=== PATIENT | female | born 1990 | race Caucasian/White ===

== ENCOUNTER 2018-08-10 16:09 | Emergency (ER) | payer BC, SELFPAY ==
--- OUTSIDE RECORDS SUMMARY | 2018-08-10 16:13 | XMS REPORT | Clinical Summary ---
:1990 Author Organization [facility] Address [address] [place] [id number] Care Team Providers Name Role Phone Asked, No Pcp Primary Care Provider Unavailable Allergies Active Allergy Reactions Severity Noted Date Comments Codeine GI Intolerance 09/24/2011 Medications Medication Sig Dispensed Refills Start Date End Date Status ELIQUIS 5 mg tablet TAKE ONE (1) 3 04/11/2018 Active TABLET(S) BY MOUTH TWICE A DAY. diazePAM (VALIUM) 5 MG Take 1 tablet 15 tablet 0 05/05/2018 05/10/2018 tablet (5 mg total) by mouth every 8 (eight) hours as needed for anxiety or muscle spasms for up to 5 days. acetaminophen (TYLENOL Take 1 tablet 30 tablet 0 05/05/2018 06/04/2018 EXTRA STRENGTH) 500 MG (500 mg total) tablet by mouth every 6 (six) hours as needed for mild pain for up to 30 days. Active Problems No known active problems Encounters Date Type Specialty Care Team Description 06/17/2018 Office Visit Orthopedic Surgery Dustin Sal Closed fracture of [place] left tibial plateau, initial encounter (Primary Dx) 06/04/2018 Office Visit Orthopedic Surgery Dustin Sal Closed fracture of [place] left tibial plateau, initial encounter (Primary Dx) 05/29/2018 Telephone Orthopedic Surgery Sangeetha Betts MA 05/26/2018 Telephone Orthopedic Surgery Sangeetha Betts MA 05/22/2018 Orders Only Orthopedic Surgery Sangeetha Betts MA 05/07/2018 Office Visit Orthopedic Surgery Dustin Sal Closed fracture of [place] left tibial plateau, initial encounter (Primary Dx) 05/06/2018 Hospital Encounter Radiology Dustin Sal Acute internal [place] derangement of left knee 05/06/2018 Office Visit Orthopedic Surgery HemanthDustin garcia Acute internal [place] derangement of left knee (Primary Dx) 05/05/2018 Emergency Emergency Medicine Jogre Delacruz Sprain of left knee, unspecified ligament, initial encounter (Primary Dx); A., DO Sprain of other site of left little finger, initial encounter; Fall, initial encounter after 08/09/2017 Family History Medical History Relation Name Comments Diabetes Mother Relation Name Status Comments Father Alive Mother Alive Social History Tobacco Use Types Packs/Day Years Used Date Never Smoker Smokeless Tobacco: Never Used Alcohol Use Drinks/Week oz/Week Comments Yes socially' Sex Assigned at Date Recorded Not on file Job Start Date Occupation Industry Not on file Not on file Not on file Travel History Travel Start Travel End No recent travel history available. Last Filed Vital Signs Vital Sign Reading Time Taken Blood Pressure 119/75 05/05/2018 7:44 PM CDT Pulse 78 05/05/2018 7:44 PM CDT Temperature 37.1 C (98.7 F) 05/05/2018 7:44 PM CDT Respiratory Rate 18 05/05/2018 7:44 PM CDT Oxygen Saturation 99% 05/05/2018 7:44 PM CDT Inhaled Oxygen Concentration - - Weight 104 kg (230 lb) 06/17/2018 2:13 PM CDT Height 180.3 cm (5' 11") 06/17/2018 2:13 PM CDT Body Mass Index 32.08 06/17/2018 2:13 PM CDT Plan of Treatment Health Maintenance Due Date Last Done Comments INFLUENZA VACCINE 09/24/2018 Procedures Procedure Name Priority Date/Time Associated Diagnosis Comments XR KNEE 4+ VW LEFT Routine 06/04/2018 3:00 PM Closed fracture of Results for this CDT left tibial plateau, procedure are in initial encounter the results section. MRI KNEE WO STAT 05/06/2018 7:39 PM Acute internal Results for this CONTRAST LEFT CDT derangement of left procedure are in knee the results section. XR CERVICAL SPINE 2 STAT 05/05/2018 7:22 PM Results for this OR 3 VW CDT procedure are in the results section. XR ANKLE 3+ VW LEFT STAT 05/05/2018 7:22 PM Results for this CDT procedure are in the results section. XR KNEE 3 VW LEFT STAT 05/05/2018 7:21 PM Results for this CDT procedure are in the results section. XR FINGER 2+ VW STAT 05/05/2018 7:21 PM Results for this LEFT CDT procedure are in the results section. after 08/09/2017 Results XR Knee 4+ Vw Left (06/04/2018 3:00 PM CDT) Specimen Narrative Performed At 4 view weightbearing radiographs left knee do not reveal any fracture. [facility] Alignment is maintained. Performing Organization Address City/State/Zipcode Phone Number [facility] [address] [place] [address] MRI Knee Left Wo Contrast (05/06/2018 7:39 PM CDT) Specimen Narrative Performed At EXAMINATION:MRI KNEE WO CONTRAST LEFT [facility] CLINICAL HISTORY:M23.92 Unspecified internal derangement of left knee, left knee pain TECHNIQUE:Multiplanar multisequence MR imaging of theleft knee was performed without contrast. COMPARISON:None. FINDINGS: Cruciate ligaments: Intact. Menisci: Intact. Collateral ligaments: Intact. Bone marrow: There is a fracture of the posterolateral margin of the lateral tibial plateau, without cortical depression. There is moderate surrounding bone marrow edema. There is associated subtle fracture/fissuring through the posterior lateral articular cartilage (series 6 image 10, series 5 image 20). Articular cartilage: Focal chondral fissure associated with posterior lateral tibial plateau fracture discussed above. Effusion: Large joint effusion. Extensor mechanism: Normal patellofemoral alignment. Soft tissues: Mild posterior pericapsular edema, edema and between the popliteus and gastrocnemius muscles, possibly due to a ruptured Garcia's cyst. IMPRESSION: Acute nondisplaced fracture of the posterior lateral margin of the lateral tibial plateau. [id number] Procedure Note Interface, Radiology Results Incoming - 05/06/2018 7:53 PM CDT EXAMINATION: MRI KNEE WO CONTRAST LEFT CLINICAL HISTORY: M23.92 Unspecified internal derangement of left knee, left knee pain TECHNIQUE: Multiplanar multisequence MR imaging of the left knee was performed without contrast. COMPARISON: None. FINDINGS: Cruciate ligaments: Intact. Menisci: Intact. Collateral ligaments: Intact. Bone marrow: There is a fracture of the posterolateral margin of the lateral tibial plateau, without cortical depression. There is moderate surrounding bone marrow edema. There is associated subtle fracture/fissuring through the posterior lateral articular cartilage (series 6 image 10, series 5 image 20). Articular cartilage: Focal chondral fissure associated with posterior lateral tibial plateau fracture discussed above. Effusion: Large joint effusion. Extensor mechanism: Normal patellofemoral alignment. Soft tissues: Mild posterior pericapsular edema, edema and between the popliteus and gastrocnemius muscles, possibly due to a ruptured Garcia's cyst. IMPRESSION: Acute nondisplaced fracture of the posterior lateral margin of the lateral tibial plateau. [id number] Performing Organization Address [facility] Phone Number [facility] [address] [place] [address] XR Cervical Spine 2 Or 3 Vw (05/05/2018 7:22 PM CDT) Specimen Narrative Performed At EXAMINATION: XR CERVICAL SPINE 2 OR 3 VW [facility] CLINICAL HISTORY: Neck paininitial exam COMPARISON:None IMPRESSION: No displaced fracture. No subluxation. Straightening of normal cervical lordosis. No significant disc height loss. Prevertebral soft tissue thickness is within normal limits. [id number] Procedure Note Interface, Radiology Results Incoming - 05/05/2018 7:27 PM CDT EXAMINATION: XR CERVICAL SPINE 2 OR 3 VW CLINICAL HISTORY: Neck pain initial exam COMPARISON: None IMPRESSION: No displaced fracture. No subluxation. Straightening of normal cervical lordosis. No significant disc height loss. Prevertebral soft tissue thickness is within normal limits. [id number] Performing Organization Address [facility]/[employer] Phone Number [facility] [address] [place] [address] XR Ankle 3+ Vw Left (05/05/2018 7:22 PM CDT) Specimen Narrative Performed At EXAMINATION:XR ANKLE 3VW LEFT [facility] CLINICAL HISTORY:Fractureankle COMPARISON:None. IMPRESSION: There is no evidence of acute left ankle fracture or dislocation. [id number] Procedure Note Interface, Radiology Results Incoming - 05/05/2018 7:27 PM CDT EXAMINATION: XR ANKLE 3 VW LEFT CLINICAL HISTORY: Fracture ankle COMPARISON: None. IMPRESSION: There is no evidence of acute left ankle fracture or dislocation. [id number] Performing Organization Address [facility]/Zipcode Phone Number [facility] [address] [place] [address] XR Knee 3 Vw Left (05/05/2018 7:21 PM CDT) Specimen Narrative Performed At EXAMINATION:XR KNEE 3 VW LEFT [facility] CLINICAL HISTORY:Knee paininitial exam COMPARISON:None available at this time. IMPRESSION: 1. No fracture, malalignment, or osseous destructive lesion of the left knee. 2. Joint spaces are maintained. No significant degenerative changes. 3. No joint effusion. Soft tissues are unremarkable. [id number] Procedure Note Interface, Radiology Results Incoming - 05/05/2018 7:27 PM CDT EXAMINATION: XR KNEE 3 VW LEFT CLINICAL HISTORY: Knee pain initial exam COMPARISON: None available at this time. IMPRESSION: 1. No fracture, malalignment, or osseous destructive lesion of the left knee. 2. Joint spaces are maintained. No significant degenerative changes. 3. No joint effusion. Soft tissues are unremarkable. [id number] Performing Organization Address [facility] Phone Number [employer] [address] [place] [address] XR Finger 2+ Vw Left (05/05/2018 7:21 PM CDT) Specimen Narrative Performed At EXAMINATION:XR FINGER 2VW LEFT [facility] CLINICAL HISTORY:Fracturehand COMPARISON:None. IMPRESSION: There is no evidence of acute left finger fracture or dislocation. [id number] Procedure Note Interface, Radiology Results Incoming - 05/05/2018 7:27 PM CDT EXAMINATION: XR FINGER 2 VW LEFT CLINICAL HISTORY: Fracture hand COMPARISON: None. IMPRESSION: There is no evidence of acute left finger fracture or dislocation. [id number] Performing Organization Address City/[facility] Phone Number [employer] [address] [place] [address] after 08/09/2017 Insurance Payer Benefit Plan / Subscriber ID Effective Dates Phone Address Type Group ALLIED HEALTH ALLIED HEALTH xxxxxxxxx 2017-Present Commercial INS Advance Directives Patient has advance care planning documents on file. For more information, please contact:Lowell Carter[address] [place] [phone]
[2018-08-10] MEDS ORDERED: KETOROLAC 30 MG/ML INJ ONE (17:23)
--- NOTE | 2018-08-10 17:27 | RAD REPORT ---
EXAM DESCRIPTION: RAD - Chest Single View - 08/10/2018 5:12 pm CLINICAL HISTORY: CHEST PAIN Chest pain. COMPARISON: <Comparisons> FINDINGS: Portable technique limits examination quality. The lungs are grossly clear. The heart is normal in size. No displaced fractures. IMPRESSION: No acute intrathoracic process suspected.
[2018-08-10 17:29] LABS: Absolute Lymphocytes (CBC) 2.3 K/uL (0.7-4.9); Basophils % 0.5 % (0-1.3); Eosinophils % 2.4 % (0-4.4); Hematocrit 42.7 % (36.0-45.0); Lymphocytes % 22.7 % (15.3-44.8); MPV 10.3 fL (7.6-11.3); Monocytes % 6.2 % (3.3-12.3); RBC Red Blood Cell Count 4.61 M/uL (3.86-4.86)
[2018-08-10 17:30] LABS: Protime INR 0.92
[2018-08-10 17:33] LABS: Urine Blood NEGATIVE (NEG); Urine Glucose NEGATIVE (NEG); Urine Protein NEGATIVE (NEG)
[2018-08-10 17:41] LABS: ALT/SGPT 30 U/L (12-78); AST/SGOT 18 U/L (15-37); Albumin 3.8 g/dL (3.4-5.0); Alkaline Phosphatase 78 U/L (45-117); BUN Blood Urea Nitrogen 14 mg/dL (7-18); Bicarbonate 30 mmol/L (21-32); Bilirubin Direct 0.1 mg/dL (0-0.2); Bilirubin Total 0.5 mg/dL (0.2-1.0); Glucose Level 92 mg/dL (74-106); Magnesium 2.1 mg/dL (1.8-2.4); NT PRO-BNP 24 pg/mL (<125); Potassium 3.4 mmol/L (3.5-5.1); Protein, Total 7.6 g/dL (6.4-8.2); Sodium Level 139 mmol/L (136-145); Troponin (Emerg Dept Use Only) < 0.02 ng/mL (0.0-0.045)
--- NOTE | 2018-08-10 18:32 | EDPHYS ---
Physician Documentation [facility] Name: Cydney Cortés Age: 28 yrs Sex: Female : 1990 Arrival Date: 08/10/2018 Time: 16:13 Bed 14 Private MD: ED Physician Michel Lai HPI: 08/10 17:05 This 28 yrs old Female presents to ER via Ambulatory with complaints of Chest cp Pain. 17:05 The patient or guardian reports chest pain that is located primarily in the substernal cp area. 17:05 The pain does not radiate. Associated signs and symptoms: Pertinent positives: cp shortness of breath, Pertinent negatives: abdominal pain, cough, diaphoresis, dizziness, lower extremity pain, lower extremity swelling, palpitations, recent travel, syncope, vomiting. The chest pain is described as sharp. Duration: The patient or guardian reports a single episode, that is still ongoing. Modifying factors: the symptoms are aggravated by activity, palpation of area. Patient reports history of multiple pulmonary embolisms diagnosed in January 2017 while on oral contraceptive. Patient reports she stopped taking prescribed Eliquis in April 2018 due to cost and lack of insurance. Patient c/o chest pain and SOB since yesterday. 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 - Social history:: Smoking status: Patient/guardian denies using tobacco. - Ebola Screening: : Patient denies travel to an Ebola-affected area in the 21 days before illness onset. ROS: 17:10 Constitutional: Negative for body aches, chills, fever, poor PO intake. cp 17:10 Eyes: Negative for injury, pain, redness, and discharge. cp 17:10 ENT: Negative for drainage from ear(s), ear pain, sore throat, difficulty swallowing, difficulty handling secretions. 17:10 Cardiovascular: Positive for chest pain, Negative for edema, palpitations. 17:10 Respiratory: Positive for shortness of breath, Negative for cough, wheezing. 17:10 Abdomen/GI: Negative for abdominal pain, nausea, vomiting, and diarrhea, black/tarry stool, rectal bleeding. 17:10 Skin: Negative for cellulitis, rash. 17:10 Neuro: Negative for altered mental status, dizziness, headache, weakness. 17:10 All other systems are negative. Exam: 16:33 ECG was reviewed by the Attending Physician. cp 17:15 Constitutional: The patient appears in no acute distress, alert, awake, cp non-diaphoretic, non-toxic, well developed, well nourished. 17:15 Head/Face: Normocephalic, atraumatic. Eyes: Pupils equal round and reactive to light, cp extra-ocular motions intact. Lids and lashes normal. Conjunctiva and sclera are non-icteric and not injected. Cornea within normal limits. Periorbital areas with no swelling, redness, or edema. ENT: Nares patent. No nasal discharge, no septal abnormalities noted. Tympanic membranes are normal and external auditory canals are clear. Oropharynx with no redness, swelling, or masses, exudates, or evidence of obstruction, uvula midline. Mucous membranes moist. 17:15 Chest/axilla: Inspection: normal, Palpation: crepitus, is not appreciated, tenderness, that is mild, of the mid-sternal area, that partially reproduces the patient's complaints. 17:15 Cardiovascular: Rate: normal, Rhythm: regular, Pulses: Pulses are 2+ in right radial artery and left radial artery. Edema: is not appreciated, JVD: is not appreciated. 17:15 Respiratory: the patient does not display signs of respiratory distress, Respirations: normal, no use of accessory muscles, no retractions, no splinting, no tachypnea, labored breathing, is not present, Breath sounds: are clear throughout, no decreased breath sounds, no stridor, no wheezing. 17:15 Abdomen/GI: Inspection: abdomen appears normal, Palpation: abdomen is soft and non-tender, in all quadrants, rebound tenderness, is not appreciated, voluntary guarding, is not appreciated, involuntary guarding, is not appreciated. 17:15 Back: pain, is absent, ROM is normal. 17:15 Skin: no rash present. 17:15 Neuro: Orientation: to person, place \T\ time. Mentation: is normal, Cerebellar function: is grossly normal, Motor: moves all fours, strength is normal, Sensation: is normal. Vital Signs: 16:37 BP 112 / 82; Pulse 85; Resp 15; Temp 98.2(TE); Pulse Ox 100% on R/A; Weight 108.86 kg aj1 (R); Height 5 ft. 11 in. (180.34 cm) (R); Pain 8/10; 17:30 BP 113 / 77; Pulse 83; Resp 19; Pulse Ox 100% on R/A; aj1 18:31 BP 109 / 74; Pulse 52; Resp 18; Pulse Ox 100% on R/A; aj1 16:37 Body Mass Index 33.47 (108.86 kg, 180.34 cm) aj1 MDM: 16:26 Patient medically screened. cp 16:30 Differential diagnosis: acute pericarditis, chest wall pain, cholecystitis, cp Cholelithiasis costochondritis, esophagitis, gastritis, myocarditis, pancreatitis, pericarditis, pneumonia, pneumothorax, pulmonary embolus. 18:30 Data reviewed: vital signs, nurses notes, lab test result(s), EKG, radiologic studies, cp plain films, I have discussed the patient's presentation/case with the attending Emergency Department Physician; and as a result, I will discharge patient. 18:30 Test interpretation: by ED physician or midlevel provider: ECG, plain radiologic cp studies. Counseling: I had a detailed discussion with the patient and/or guardian regarding: the historical points, exam findings, and any diagnostic results supporting the discharge/admit diagnosis, lab results, radiology results, to return to the emergency department if symptoms worsen or persist or if there are any questions or concerns that arise at home. Response to treatment: the patient's symptoms have mildly improved after treatment, and as a result, I will discharge patient. Special discussion: Based on the patient's history, exam, and Dx evaluation, there is no indication for emergent intervention or inpatient Tx. It is understood by the patient/guardian that if the Sx's persist or worsen they need to return immediately for re-evaluation. 08/10 16:27 Order name: Basic Metabolic Panel; Complete Time: 18:15 cp 08/10 18:24 Interpretation: Normal except: K 3.4; GFR 78. cp 06/17 16:27 Order name: CBC with Diff; Complete Time: 18:15 cp /17 16:27 Order name: LFT's; Complete Time: 18:15 cp /17 18:25 Interpretation: Normal except: GLOB 3.8; A/G 1.0. cp 06/17 16:27 Order name: Magnesium; Complete Time: 18:15 cp /17 16:27 Order name: NT PRO-BNP; Complete Time: 18:15 cp /17 16:27 Order name: PT-INR; Complete Time: 18:15 cp /17 16:27 Order name: Troponin (emerg Dept Use Only); Complete Time: 18:15 cp /17 16:27 Order name: XRAY Chest (1 view); Complete Time: 18:15 cp /17 16:27 Order name: EKG; Complete Time: 16:28 cp /17 16:27 Order name: Cardiac monitoring; Complete Time: 16:40 cp /17 16:42 Order name: D-Dimer; Complete Time: 18:15 cp /17 17:21 Order name: Urine Dipstick--Ancillary (enter results); Complete Time: 18:15 bd /17 17:21 Order name: Urine --Ancillary (enter results); Complete Time: 18:15 bd /17 16:27 Order name: EKG - Nurse/Tech; Complete Time: 16:40 cp /17 16:27 Order name: IV Saline Lock; Complete Time: 16:41 cp /17 16:27 Order name: Labs collected and sent; Complete Time: 16:41 cp /17 16:27 Order name: O2 Per Protocol; Complete Time: 16:41 cp /17 16:27 Order name: O2 Sat Monitoring; Complete Time: 16:41 cp /17 16:27 Order name: Urine Dipstick-Ancillary (obtain specimen); Complete Time: 17:24 cp / 16:27 Order name: Urine Test (obtain specimen); Complete Time: 17:24 cp EC:33 Rate is 78 beats/min. Rhythm is regular. ND interval is normal. QRS interval is normal. cp QT interval is normal. T waves are Inverted in lead aVR. Interpreted by me. Reviewed by me. Administered Medications: 17:22 Drug: TORadol 30 mg Route: IVP; Site: right antecubital; aj1 18:11 Follow up: Response: No adverse reaction aj1 Disposition: 08/10/18 18:31 Discharged to Home. Impression: Other chest pain. - Condition is Stable. - Discharge Instructions: Nonspecific Chest Pain. - Prescriptions for Ibuprofen 800 mg Oral Tablet - take 1 tablet by ORAL route every 8 hours As needed take with food; 30 tablet. Albuterol Sulfate 90 mcg/actuation - inhale 1-2 puff by INHALATION route every 4-6 hours; 1 Inhaler. - Medication Reconciliation Form, Thank You Letter, Antibiotic Education, Prescription Opioid Use form. - Follow up: Private Physician; When: 2 - 3 days; Reason: Recheck today's complaints. - Problem is new. - Symptoms have improved. Signatures: Dispatcher [employer] Olena Mcelroy RN RN aj1 Troy Hutchison PA PA cp Corrections: (The following items were deleted from the chart) 18:44 18:31 08/10/2018 18:31 Discharged to Home. Impression: Other chest pain. Condition is aj1 Stable. Forms are Medication Reconciliation Form, Thank You Letter, Antibiotic Education, Prescription Opioid Use. Follow up: Private Physician; When: 2 - 3 days; Reason: Recheck today's complaints. Problem is new. Symptoms have improved. cp
--- NOTE | 2018-08-10 18:32 | ER ---
Nurse's Notes [facility] Name: Cydney Cortés Age: 28 yrs Sex: Female : 1990 Arrival Date: 08/10/2018 Time: 16:13 Bed 14 Private MD: Diagnosis: Other chest pain Presentation: 08/10 16:17 Presenting complaint: Patient states: She stopped taking her Elliquis in April because aj1 she does not have insurance and it got too expensive. Patient has a history of PE, states that she started having chest pain yesterday and today she started feeling short of breath. Transition of care: patient was not received from another setting of care. Onset of symptoms was August 09, 2018. Risk Assessment: Do you want to hurt yourself or someone else? Patient reports no desire to harm self or others. 16:17 Method Of Arrival: Ambulatory aj1 16:17 Acuity: LAMAR 3 aj1 16:35 Initial Sepsis Screen: Does the patient meet any 2 criteria? No. Patient's initial aj1 sepsis screen is negative. Does the patient have a suspected source of infection? No. Patient's initial sepsis screen is negative. Care prior to arrival: None. Triage Assessment: 16:37 General: Appears in no apparent distress. uncomfortable, Behavior is calm, cooperative, aj1 appropriate for age. Pain: Complains of pain in mid-sternal area. Cardiovascular: Reports chest pain. 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 - Social history:: Smoking status: Patient/guardian denies using tobacco. - Ebola Screening: : Patient denies travel to an Ebola-affected area in the 21 days before illness onset. Screenin:38 Abuse screen: Denies threats or abuse. Denies injuries from another. Nutritional aj1 screening: No deficits noted. Tuberculosis screening: No symptoms or risk factors identified. 18:44 Fall Risk None identified. aj1 Assessment: 16:38 General: Appears in no apparent distress. uncomfortable, Behavior is calm, cooperative, aj1 appropriate for age. Pain: Complains of pain in mid-sternal area Pain does not radiate. Pain currently is 8 out of 10 on a pain scale. Quality of pain is described as sharp, Pain began 1 day ago. Is intermittent, Aggravated by repositioning. Neuro: Level of Consciousness is awake, alert, obeys commands, Oriented to person, place, time, situation. Cardiovascular: Patient's skin is warm and dry. Rhythm is sinus rhythm. Respiratory: Airway is patent Respiratory effort is even, unlabored, Respiratory pattern is regular, symmetrical. GI: No signs and/or symptoms were reported involving the gastrointestinal system. : No signs and/or symptoms were reported regarding the genitourinary system. EENT: No signs and/or symptoms were reported regarding the EENT system. Derm: No signs and/or symptoms reported regarding the dermatologic system. Skin is pink, warm \T\ dry. normal. Musculoskeletal: No signs and/or symptoms reported regarding the musculoskeletal system. Circulation, motion, and sensation intact. 17:29 Reassessment: Patient appears in no apparent distress at this time. No changes from aj1 previously documented assessment. Patient and/or family updated on plan of care and expected duration. Pain level reassessed. Patient is alert, oriented x 3, equal unlabored respirations, skin warm/dry/pink. 18:31 Reassessment: Patient appears in no apparent distress at this time. No changes from aj1 previously documented assessment. Patient and/or family updated on plan of care and expected duration. Pain level reassessed. Patient is alert, oriented x 3, equal unlabored respirations, skin warm/dry/pink. Vital Signs: 16:37 BP 112 / 82; Pulse 85; Resp 15; Temp 98.2(TE); Pulse Ox 100% on R/A; Weight 108.86 kg aj1 (R); Height 5 ft. 11 in. (180.34 cm) (R); Pain 8/10; 17:30 BP 113 / 77; Pulse 83; Resp 19; Pulse Ox 100% on R/A; aj1 18:31 BP 109 / 74; Pulse 52; Resp 18; Pulse Ox 100% on R/A; aj1 16:37 Body Mass Index 33.47 (108.86 kg, 180.34 cm) aj1 ED Course: 16:13 Patient arrived in ED. mr 16:17 Olena Dhaliwal, RN is Primary Nurse. aj1 16:18 Triage completed. aj1 16:19 Troy Hutchison PA is PHCP. cp 16:19 Michel Lai MD is Attending Physician. cp 16:30 EKG done, by client technical specialist. reviewed by Michel Lai MD. 3 16:30 Initial lab(s) drawn, by wy, sent to lab. Inserted saline lock: 20 gauge in right aj1 antecubital area, using aseptic technique. Blood collected. 16:37 Arm band placed on. aj1 16:38 No provider procedures requiring assistance completed. Patient maintains SpO2 aj1 saturation greater than 95% on room air. 16:38 Patient has correct armband on for positive identification. Bed in low position. Call aj1 light in reach. Side rails up X 1. manager monitoring on. Pulse ox on. NIBP on. 17:14 XRAY Chest (1 view) In Process Unspecified. EDMS 18:43 IV discontinued, intact, bleeding controlled, No redness/swelling at site. Pressure aj1 dressing applied. Administered Medications: 17:22 Drug: TORadol 30 mg Route: IVP; Site: right antecubital; aj1 18:11 Follow up: Response: No adverse reaction aj1 Outcome: 18:31 Discharge ordered by . cp 18:44 Discharged to home ambulatory. aj1 18:44 Condition: good 18:44 Discharge instructions given to patient, Instructed on discharge instructions, follow up and referral plans. medication usage, Demonstrated understanding of instructions, follow-up care, medications, Prescriptions given X 2. 18:44 Patient left the ED. aj1 Signatures: Dispatcher [employer] EDME Olena Dhaliwal RN RN aj1 Kalina Nagy mr Troy Hutchison PA PA cp Meliza Nath 3
--- NOTE | 2018-08-10 22:21 | EKG ---
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
== END 2018-08-10 18:44 | disposition home or self-care (01) ==
LOC: ER 16:09
DX: R07.89 Other chest pain (principal); R06.02 Shortness of breath; Z88.5 Allergy status to narcotic agent; Z91.018 Allergy to other foods; Z79.01 Long term (current) use of anticoagulants; Z86.711 Personal history of pulmonary embolism
CPT/HCPCS: 36415; 71045; 80048; 80076; 81003; 81025; 83735; 83880; 84484; 85025; 85379; 85610; 93005; 96374; 99285

== ENCOUNTER 2021-11-05 22:49 | Emergency (ER) | payer BC, OTHER ==
--- OUTSIDE RECORDS SUMMARY | 2021-11-05 22:52 | XMS REPORT | Continuity of Care Document ---
:1990 Author Organization [facility] t Address [address] [place] [address] Care Team Providers Name Role Phone PCP, PATIENT DOES NOT HAVE A Primary Care Physician Unavaila ble Daniel_T Attending Clinician Unavailable Only, Ang Db Test Attending Clinician Unavailable Tara Kim Attending Clinician TARA BRASHER Attending Clinician Unavailable Montez Brady MD Attending Clinician JHONNY HINOJOSA Attending Clinician Unavailable Alverto_Carlos Admitting Clinician Unavailable Payers Payer Name Policy Type Policy Number Effective Date Expiration Date 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 diane polycythem Polycythem 0-24 Fa sudha ia ia 00:00: Practic 00 e Obstructiv Obstructiv Problem Active 2020-02 [place] e sleep e Sleep 0-21 Family apnea Apnea 00:00: Practic syndrome Syndrome 00 e Prediabete Prediabete Problem Active 2020-02 V illage s s 0-21 Family 00:00: Practic 00 e Obesity Obesity Problem Active 2020-02 [place] 0-21 Family 00:00: Practic 00 e LGSIL (low LGSIL (low Disease Active Overview : 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 Repeat cytology in 1 year Rh Rh Disease Active Overview: Univer s negative negative 05-02 Formattin ity of state in state in 00:00: g of this Jun[place] as antepartum antepartum 00 note Me dical period period might be Branch different from the original. Rhogam at 28 weeks Supervisio Supervisio Disease Active U nivers n of n of 3-08 ity of high[place]risk [place] [facility] [place] No known No known Disease Metho di active active st problems problems Hospit a l Allergies, Adverse Reactions, Alerts Allergy Allergy Status Severity Reaction(s) Onset Inactive Treating Comm ents Source Name Type Date Date Clinician STRAWBER DRUG Active Anaphylaxis Uni vers RY INGREDI 04-30 ity of 00:00: [place] 00 [facility] Strawber Propensi Active Anaphylaxis U nivers ry ty to 04-30 ity of adverse 00:00: [place] reaction 00 Medical s Branch Codeine Propensi Active GI Methodi ty to Intolerance 09-23 st adverse 00:00: Hospita reaction 00 l s to drug CODEINE DRUG Active N/V Univers INGREDI 09-23 ity of 00:00: [place] 00 [facility] Codeine Propensi Active Nausea Univers ty to and/or 09-23 ity of adverse Vomiting 00:00: [place] reaction 00 Medical s Branch STRAWBER Allergy Active Fatal Anaphylaxis 2009-02 Vi llage RY to 0-10 Family substanc 00:00: Practic e 00 e CAT Allergy Active Moderate, Eye [place] DANDER to Moderate swelling, Famil y substanc Facial Practic e swelling e Codeine Allergy Active Severe Vomiting Villag e to Family substanc Practic e e Dog Allergy Active Mild to Wheezing Villag e Dander to moderate Family substanc Practic e e STOCK Allergy Active Moderate, Cough, Villag e RAGWEED to Moderate Facial Family POLLEN substanc swelling Practi c MIXTURE e e Family History Family Member Diagnosis Comments Start Date Stop Date Source Natural father [facility] Natural mother Diabetes [facility] Social History Social Habit Start Date Stop Date Quantity Comments Source Alcohol intake 2018-06-17 2018-06-17 Current drinker [facility] 00:00:00 00:00:00 of alcohol (finding) Alcohol Comment 2018-05-05 2018-05-05 socially' [facility] 00:00:00 00:00:00 Tobacco use and 2015-05-01 2015-05-01 Never used Universit y of exposure 00:00:00 00:00:00 [facility] Sex Ass[birth year] At [birth year] [facility] 00:00:00 00:00:00 Smoking Status Start Date Stop Date Source Never smoked tobacco [facility] ospital Medications Ordered Filled Start Stop Current Ordering Indication Dosage Frequency Signature Comments Components Source Medication Medication Date Date Medication? Clinician (SIG) Name Name RAMOS 5 Yes TAKE ONE Meth antonella mg tablet 2-16 (1) st 00:00: TABLET(S) Hospita 00 BY MOUTH l TWICE A DAY. PNV without Yes [id number] 1{each} Take 1 Univers Ca-Iron 3-08 Each by ity of [id number]-FA 00:00: mouth [place] (SELECT-OB, 00 daily. Medica l FOLIC Branch ACID,) 29-1 mg Chew acyclovir acyclovir No acyclovir [facility] 200 mg 200 mg 200 mg Family capsule capsule capsule Practi c TAKE ONE TAKE ONE TAKE ONE e (1) (1) (1) CAPSULE(S) CAPSULE(S) CAPSULE(S) BY MOUTH BY MOUTH BY MOUTH FIVE TIMES FIVE TIMES FIVE TIMES A DAY FOR A DAY FOR A DAY FOR 10 DAYS. 10 DAYS. 10 DAYS. bupropion bupropion No bupropion [facility] HCl XL 300 HCl XL 300 HCl XL 300 Family mg 24 hr mg 24 hr mg 24 hr Pra ctic tablet, tablet, tablet, e extended extended extended release release release TAKE ONE TAKE ONE TAKE ONE (1) (1) (1) TABLET(S) TABLET(S) TABLET(S) BY MOUTH BY MOUTH BY MOUTH EVERY EVERY EVERY MORNING. MORNING. MORNING. cetirizine cetirizine No cetirizine [facility] 10 mg 10 mg 10 mg Family tablet TAKE tablet TAKE tablet Practic ONE (1) ONE (1) TAKE ONE e TABLET(S) TABLET(S) (1) BY MOUTH BY MOUTH TABLET(S) ONCE A DAY. ONCE A DAY. BY MOUTH ONCE A DAY. phentermine phentermine No phentermin [facility] 37.5 mg 37.5 mg e 37.5 mg Fami ly tablet TAKE tablet TAKE tablet Practic ONE (1) ONE (1) TAKE ONE e TABLET(S) TABLET(S) (1) BY MOUTH BY MOUTH TABLET(S) ONCE A DAY. ONCE A DAY. BY MOUTH ONCE A DAY. Trulicity Trulicity No Trulicity [place] 1.5 mg/0.5 1.5 mg/0.5 1.5 mg/0.5 Family mL mL mL Practic subcutaneou subcutaneou subcutaneo e s pen s pen us pen injector injector injector INJECT 1.5 INJECT 1.5 INJECT 1.5 MG MG MG SUBCUTANEOU SUBCUTANEOU SUBCUTANEO SLY EVERY SLY EVERY USLY EVERY WEEK. WEEK. WEEK. Trulicity 3 Trulicity 3 No 3mg Q1W Trulicity [place] mg/0.5 mL mg/0.5 mL 3 mg/0.5 F amily subcutaneou subcutaneou mL P ractic s pen s pen subcutaneo e injector injector us pen Inject 3 mg Inject 3 mg injector every week every week Inject 3 by by mg every subcutaneou subcutaneou week by s route for s route for subcutaneo 30 days. 30 days. us route for 30 days. Immunizations Ordered Filled Immunization Date Status Comments [facility] e Immunization Name Name SARS-COV-2 COVID-19 2020-11-03 Completed Unive rsity of PFIZER VACCINE 00:00:00 [facility] SARS-COV-2 COVID-19 2020-10-10 Completed Unive rsity of PFIZER VACCINE 00:00:00 [facility] HPV 2008-11-29 Completed University 00:00:00 [facility] HPV 2008-03-25 Completed University 00:00:00 [facility] HPV 2007-12-02 Completed [facility] 00:00:00 [facility] Vital Signs Vital Name Observation Time Observation Value Comments Source BP Diastolic 2021-06-14 00:00:00 71 mm[Hg] [facility] Height 2021-06-14 00:00:00 70 [in_i] [facility] BMI (Body Mass 2021-06-14 00:00:00 34.1 kg/m2 [facility] BP Systolic 2021-06-14 00:00:00 107 mm[Hg] [facility] Body Weight 2021-06-14 00:00:00 238 [lb_av] [facility] BP Diastolic 2021-03-16 00:00:00 73 mm[Hg] [facility] Height 2021-03-16 00:00:00 70 [in_i] [facility] BMI (Body Mass 2021-03-16 00:00:00 35.3 kg/m2 Vill e Family Index) Practice BP Systolic 2021-03-16 00:00:00 106 mm[Hg] [facility] Body Weight 2021-03-16 00:00:00 246 [lb_av] [facility] Practice BP Diastolic 2020-12-14 00:00:00 79 mm[Hg] [facility] Height 2020-12-14 00:00:00 70 [in_i] [facility] Practice BMI (Body Mass 2020-12-14 00:00:00 37 kg/m2 [facility] e Family Index) Practice BP Systolic 2020-12-14 00:00:00 112 mm[Hg] [facility] Body Weight 2020-12-14 00:00:00 258 [lb_av] [facility] Procedures Procedure Date / Time Performed Performing Clinician [facility] e Caesarean Section 2015-10-13 00:00:00 [facility] sudha Practice Foot Surgery [facility] mony Plan of Care Planned Activity Planned Date Details Comments Source Future Scheduled Test 2021-10-25 HEPATITIS B VACCINES [facility] 21:29:40 (1 of 3 - 3-dose series) [code = HEPATITIS B VACCINES (1 of 3 - 3-dose series)] Future Scheduled Test 2021-10-25 COVID-19 VACCINE [facility] 21:29:40 (#1) [code = COVID-19 VACCINE (#1)] Future Scheduled Test 2021-10-25 Screening for [facility] 21:29:40 malignant neoplasm of cervix (procedure) [code = [id number]] Future Scheduled Test 2021-10-[address] [facility] 21:29:40 [code = INFLUENZA VACCINE] Diagnostic Test 2021-06-14 glucose, [facility] Fami ly Pending 00:00:00 fingerstick, blood Practice [code = glucose, fingerstick, blood] Diagnostic Test 2021-06-14 hemoglobin A1C, [facility] Naomi deysi Pending 00:00:00 fingerstick [code = Practice hemoglobin A1C, fingerstick] Future Appointment 2021-12-14 Victor Manuel [facility] 00:00:00 [id number]; [facility] [address], [place] [address] Future Appointment 2021-12-06 Victor Manuel [facility] 16:00:00 [id number]; [address], [place] [address] Encounters Start End Encounter Admission Attending Care Care Encounter Source Date/Time Date/Time Type Type Clinicians Facility Department ID 2021-07-05 2021-07-05 Outpatient Daniel_T VFP VFP [id number] [facility] 07:21:00 07:21:00 [id number] Family Sharma e 2021-06-14 2021-06-14 James Del Toro_T VFP [place] - [id number] [facility] 00:00:00 00:00:00 [facility] [id number] Selwyn Del Toro MD: [id number] UYEN_Harshal zarco [address] [place] [address] [address] , Ph. 2021-06-07 2021-06-07 Outpatient Daniel_T VFP VFP [id number] [id number] [facility] 05:28:00 05:28:00 [id number] Family Sharma e 2021-03-20 2021-03-20 Outpatient Daniel_T VFP VFP [id number] [id number] [facility] 03:22:00 03:22:00 [id number] Family Zachary e 2021-03-16 2021-03-16 James Ismaelel_T VFP [place] - [id number] 0 [facility] 00:00:00 00:00:00 [facility] [id number] Selwyn Del Toro MD: [id number] Marissa zarco [address] [place] [address], [place] [address] , Ph. 2021-02-24 2021-02-24 Laboratory Only, Ang Db Test [facility] 1.2.8 40.114 [id number] [facility] 11:30:00 11:45:00 Only [facility] [id number] [facility] [id number] Junito as CHEYANNE?BLEA [phone] Ks mitzy [address] MEDICAL OFFICE BUILDING 2021-02-24 2021-02-24 Outpatient Tabitha BRASHER [facility] [id number] Univers 11:30:00 11:30:00 [facility] 2021-01-25 2021-01-25 Outpatient Daniel_T VFP VFP [id number] [place] 08:04:00 08:04:00 [id number] Family Practic e 2020-12-28 2020-12-28 Outpatient Daniel_T VFP VFP [id number] 20 [place] 03:28:00 03:28:00 [id number] Family Practic e 2020-12-14 2020-12-14 James Daniel_T VFP [place] - [id number] [facility] 00:00:00 00:00:00 [facility] [id number] Selwyn Escobar - Prackeily burgess MD: [id number] VM_FEMI_Raul e [place] [facility], [address], [place] [address] , Ph. 2020-11-22 2020-11-22 Outpatient Daniel_T VFP VFP [id number] [facility] 05:19:00 05:19:00 [id number] Family Practic e 2020-11-16 2020-11-16 Telephone Jose Antonio, [id number] Methodi 00:00:00 00:00:[id number] [id number] Hospit [id number] l .8 2020-10-10 2020-10-10 Outpatient Tabitha HINOJOSA [facility] [id number] Univers 17:40:00 18:00:08 JHONNY [facility] 2018-08-11 2018-08-11 Emergency E [facility]BL [facility] [id number] [facility] 14:04:00 14:04:00 Results Test Description Test Time Test Comments Results Result Comments Source Hemoglobin A1c measurement device panel 2021-06-14 16:01:01 Test Item Value Reference Range Interpretation Comme nts Hemoglobin A1C Fingerstick: (test code = Hemoglobin A1C Fingerstick :) 4.7 [facility] Capillary [id number] 15:58:23 Test Item Value Reference Range Interpretation Comments Blood Glucose: mg/dl (test code = Blood 87 Glucose: mg/dl) [facility] [id number] 15:59:25 Test Item Value Reference Range Interpretation Comments Hemoglobin A1C Fingerstick: (test code 4.7 = Hemoglobin A1C Fingerstick:) [facility]] in Capillary [id number] 15:53:38 Test Item Value Reference Range Interpretation Comments Blood Glucose: mg/dl (test code = Blood 68 Glucose: mg/dl) [facility] [id number] 16:04:41 Test Item Value Reference Range Interpretation Comments Hemoglobin A1C Fingerstick: (test code 4.6 = Hemoglobin A1C Fingerstick:) [facility]
[2021-11-06] MEDS ORDERED: NA CHLORIDE 0.9% 1,000 ML ONE (00:02)
[2021-11-06 00:07] LABS: Hematocrit 40.1 % (36.0-45.0); Lymphocytes % 13.4 % (15.3-44.8); MCV 89.6 fL (80-100); MPV 9.4 fL (7.6-11.3); RBC Red Blood Cell Count 4.48 M/uL (3.86-4.86)
[2021-11-06 00:21] LABS: Albumin 3.5 g/dL (3.4-5.0); Bilirubin Total 0.5 mg/dL (0.2-1.0); Protein, Total 7.6 g/dL (6.4-8.2)
--- NOTE | 2021-11-06 01:27 | ER ---
Nurse's Notes [facility] Name: Cydney Cortés Age: 31 yrs Sex: Female : 1990 Arrival Date: 11/05/2021 Time: 22:50 Bed 4 Private MD: Diagnosis: Infectious gastroenteritis and colitis, unspecified Presentation: 11/05 23:04 Chief complaint: Patient states: I have a stabbing pain in my RUQ, I feel like I have aa9 to use the bathroom but I can't. I was throwing up yesterday and I have had a severe headache these past 2 days. I have noticed mild fever too. Coronavirus screen: Vaccine status: Patient reports receiving the 2nd dose of the covid vaccine. Ebola Screen: No symptoms or risks identified at this time. Initial Sepsis Screen: Does the patient meet any 2 criteria? No. Patient's initial sepsis screen is negative. Does the patient have a suspected source of infection? No. Patient's initial sepsis screen is negative. Risk Assessment: Do you want to hurt yourself or someone else? Patient reports no desire to harm self or others. Onset of symptoms was November 05, 2021. 23:04 Method Of Arrival: Ambulatory aa9 23:04 Acuity: LAMAR 3 aa9 Triage Assessment: 23:08 General: Appears uncomfortable, Behavior is cooperative, anxious. Pain: Complains of aa9 pain in right upper quadrant Pain currently is 8 out of 10 on a pain scale. Quality of pain is described as stabbing. GI: Abdomen is distended. 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 - Social history:: Smoking status: Patient denies any tobacco usage or history of. Screenin:09 Abuse screen: Denies threats or abuse. Denies injuries from another. Nutritional aa9 screening: No deficits noted. Tuberculosis screening: No symptoms or risk factors identified. Fall Risk None identified. Assessment: 23:15 Reassessment: See triage note. 11/06 00:39 Reassessment: Patient appears in no apparent distress at this time. Patient and/or jb4 family updated on plan of care and expected duration. Pain level reassessed. Patient is alert, oriented x 3, equal unlabored respirations, skin warm/dry/pink. Vital Signs: 11/05 23:04 BP 108 / 97; Pulse 102; Resp 17 S; Temp 98.9(O); Pulse Ox 100% on R/A; Weight 104.33 kg aa9 (R); Height 5 ft. 10 in. (177.80 cm) (R); Pain 8/10; 11/06 00:25 BP 108 / 69; Pulse 93; Resp 18; Pulse Ox 100% on R/A; jj7 01:44 BP 103 / 66; Pulse 91; Resp 17; Pulse Ox 100% on R/A; Pain 4/10; jj7 11/05 23:04 Body Mass Index 33.00 (104.33 kg, 177.80 cm) aa9 ED Course: 11/05 22:50 Patient arrived in ED. ag3 22:51 Troy Hutchison PA is PHCP. cp 22:51 Luis Morales MD is Attending Physician. cp 23:05 Triage completed. aa9 23:09 Arm band placed on. aa9 23:09 Patient has correct armband on for positive identification. Bed in low position. Side aa9 rails up X2. Adult w/ patient. 23:46 COVID-19 SARS RT PCR (Document "Date of Onset" if Symptomatic) Sent. jb4 23:46 Influenza Screen (a \\T\\ B) Sent. [facility] 11/06 00:00 Ryan Graves, STEFFANY is Primary Nurse. as6 00:47 CT Abd/Pelvis - IV Contrast Only In Process Unspecified. EDMS 01:26 Khalif Harris MD is Referral Physician. cp 02:07 No provider procedures requiring assistance completed. IV discontinued, intact, as6 bleeding controlled, No redness/swelling at site. Pressure dressing applied. Administered Medications: 11/05 23:46 Not Given (Patient Refused): Pepcid (famotidine) 20 mg IVP once; dilute with 10 mL 0.9% jb4 NaCl; give over 2 minutes 23:46 Not Given (Patient Refused): Bentyl (dicyclomine) 20 mg IM once jb4 23:47 Not Given (Patient Refused): Zofran (Ondansetron) 4 mg IVP once; over 2 minutes jb4 11/06 00:00 Drug: NS 0.9% 1000 ml Route: IV; Rate: 1 bolus; Site: right antecubital; jb4 02:06 Follow up: Response: No adverse reaction; IV Status: Completed infusion; IV Intake: as6 1000ml 01:36 Drug: Cipro (ciprofloxacin) 500 mg Route: PO; jj7 02:06 Follow up: Response: No adverse reaction as6 01:36 Drug: metroNIDAZOLE 500 mg Route: PO; jj7 02:06 Follow up: Response: No adverse reaction as6 Medication: 02:07 VIS not applicable for this client. as6 Intake: 02:06 IV: 1000ml; Total: 1000ml. as6 Outcome: 01:27 Discharge ordered by MD. cp 02:07 Discharged to home ambulatory. as6 02:07 Condition: stable 02:07 Discharge instructions given to patient, Instructed on discharge instructions, follow up and referral plans. medication usage, Demonstrated understanding of instructions, follow-up care, medications, Prescriptions given X 4. 02:07 Patient left the ED. as6 Signatures: Dispatcher [employer] EDMS Troy Hutchison PA PA cp Bryson, James, RN RN jb4 Tracey Paiz ag3 Ryan Graves RN RN as6 Miladis Rico RN RN aa9 Stefan Dhaliwal RN RN jj7 Corrections: (The following items were deleted from the chart) 11/05 23:08 23:05 PSHx: None; ari chapman
--- NOTE | 2021-11-06 01:27 | EDPHYS ---
Physician Documentation [facility] Name: Cydney Cortés Age: 31 yrs Sex: Female : 1990 Arrival Date: 11/05/2021 Time: 22:50 Bed 4 Private MD: ED Physician Luis Morales HPI: 11/05 23:16 This 31 yrs old Female presents to ER via Ambulatory with complaints of Abdominal Pain. cp 23:16 The patient presents with abdominal pain mid and right side of abdomen. Onset: The cp symptoms/episode began/occurred today. The symptoms do not radiate. Associated signs and symptoms: Pertinent positives: fever, nausea and vomiting started yesterday, diarrhea started today, Pertinent negatives: constipation, dysuria. The symptoms are described as stabbing. Severity of pain: in the emergency department the pain is unchanged despite home interventions. CHEFS: 23:09 LMP 10/18/2021 aa9 Historical: - Allergies: 23:05 Codeine; aa9 23:05 Strawberries; aa9 - Home Meds: 23:05 Wellbutrin XL 300 mg Oral Tb24 [Active]; Trulicity subcutaneous once wkly [Active]; aa9 - PMHx: 23:05 Diabetes mellitus; Anxiety; aa9 - PSHx: 23:05 section; aa9 - Immunization history:: Client reports receiving the 2nd dose of the Covid vaccine, Flu vaccine is not up to date. - Social history:: Smoking status: Patient denies any tobacco usage or history of. ROS: 23:17 Eyes: Negative for injury, pain, redness, and discharge. cp 23:17 Constitutional: Negative for body aches, chills, fever, poor PO intake. 23:17 ENT: Negative for drainage from ear(s), ear pain, sore throat, difficulty swallowing, difficulty handling secretions. 23:17 Cardiovascular: Negative for chest pain, palpitations. 23:17 Respiratory: Negative for cough, shortness of breath, wheezing. 23:17 Abdomen/GI: Positive for abdominal pain, nausea, vomiting, and diarrhea, Negative for constipation, hematemesis, black/tarry stool, rectal bleeding. 23:17 : Negative for urinary symptoms. 23:17 Neuro: Positive for headache, Negative for altered mental status. 23:17 All other systems are negative. Exam: 23:18 Head/Face: Normocephalic, atraumatic. cp 23:18 Constitutional: The patient appears in no acute distress, alert, awake, non-toxic, well developed, well nourished. 23:18 Eyes: Periorbital structures: appear normal, Conjunctiva: normal, no exudate, no injection, Sclera: no appreciated abnormality, Lids and lashes: appear normal, bilaterally. 23:18 ENT: External ear(s): are unremarkable, Nose: is normal, Mouth: Lips: moist, Oral mucosa: moist, Posterior pharynx: Airway: no evidence of obstruction, patent. 23:18 Chest/axilla: Inspection: normal. 23:18 Cardiovascular: Rate: tachycardic, Rhythm: regular. 23:18 Respiratory: the patient does not display signs of respiratory distress, Respirations: normal, no use of accessory muscles, no retractions, labored breathing, is not present, Breath sounds: are clear throughout, no decreased breath sounds, no stridor, no wheezing. 23:18 Abdomen/GI: Inspection: abdomen appears normal, Bowel sounds: active, all quadrants, Palpation: soft, in all quadrants, moderate abdominal tenderness, in the right lower quadrant, rebound tenderness, is not appreciated, involuntary guarding, is elicited in the right lower quadrant. 23:18 Back: pain, is absent, ROM is normal. Vital Signs: 23:04 BP 108 / 97; Pulse 102; Resp 17 S; Temp 98.9(O); Pulse Ox 100% on R/A; Weight 104.33 kg aa9 (R); Height 5 ft. 10 in. (177.80 cm) (R); Pain 8/10; 11/06 00:25 BP 108 / 69; Pulse 93; Resp 18; Pulse Ox 100% on R/A; jj7 01:44 BP 103 / 66; Pulse 91; Resp 17; Pulse Ox 100% on R/A; Pain 4/10; jj7 11/05 23:04 Body Mass Index 33.00 (104.33 kg, 177.80 cm) aa9 MDM: 11/05 23:02 Patient medically screened. cp 11/06 00:00 Differential diagnosis: appendicitis, cholecystitis, Cholelithiasis, diverticulitis, cp non-specific abd pain, Ureterolithiasis, urinary tract infection, colitis. :27 Data reviewed: vital signs, nurses notes, lab test result(s), radiologic studies, CT cp scan. 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 Response to treatment: the patient's symptoms have markedly improved after treatment, and as a result, I will discharge patient. Special discussion: Based on the patient's Hx, exam, and Dx evaluation, there is no indication for emergent surgery or inpatient Tx. It is understood by the patient/guardian that if the Sx's persist or worsen they need to return immediately for re-evaluation. 11/05 23:21 Order name: CBC with Diff; Complete Time: 01:07 11/06 01:08 Interpretation: Normal except: GEOFF% 78.1; LYM% 13.4. 11/05 23:21 Order name: CMP; Complete Time: 01:07 11/06 01:08 Interpretation: Normal except: GFR 78; AST 257; ALT 268; GLOB 4.1; A/G 0.9. 11/05 23:21 Order name: Lipase; Complete Time: 01:07 11/05 23:21 Order name: Urine Microscopic Only 11/05 23:22 Order name: Influenza Screen (a \\T\\ B); Complete Time: 01:07 11/05 23:22 Order name: COVID-19 SARS RT PCR (Document "Date of Onset" if Symptomatic); Complete cp Time: 01:11/05 23:21 Order name: CT Abd/Pelvis - IV Contrast Only 11/06 01:43 Order name: Urine --Ancillary (enter results) mw2 11/06 01:43 Order name: Urine Dipstick-Ancillary EDOH 11/05 23:21 Order name: IV Saline Lock; Complete Time: 23:47 11/05 23:21 Order name: Labs collected and sent; Complete Time: 23:47 11/05 23:21 Order name: Urine Dipstick-Ancillary (obtain specimen); Complete Time: 01:43 11/05 23:21 Order name: Urine Test (obtain specimen); Complete Time: 01:43 cp 11/06 01:16 Order name: PO challenge cp Administered Medications: 11/05 23:46 Not Given (Patient Refused): Pepcid (famotidine) 20 mg IVP once; dilute with 10 mL 0.9% jb4 NaCl; give over 2 minutes 23:46 Not Given (Patient Refused): Bentyl (dicyclomine) 20 mg IM once jb4 23:47 Not Given (Patient Refused): Zofran (Ondansetron) 4 mg IVP once; over 2 minutes jb4 11/06 00:00 Drug: NS 0.9% 1000 ml Route: IV; Rate: 1 bolus; Site: right antecubital; jb4 02:06 Follow up: Response: No adverse reaction; IV Status: Completed infusion; IV Intake: as6 1000ml 01:36 Drug: Cipro (ciprofloxacin) 500 mg Route: PO; jj7 02:06 Follow up: Response: No adverse reaction as6 01:36 Drug: metroNIDAZOLE 500 mg Route: PO; jj7 02:06 Follow up: Response: No adverse reaction as6 Disposition: 02:12 Co-signature as Attending Physician, Luis Morales MD I agree with the assessment and kdr plan of care. Disposition Summary: 11/06/21 01:27 Discharge Ordered Location: Home cp Problem: new cp Symptoms: have improved cp Condition: Stable cp Diagnosis - Infectious gastroenteritis and colitis, unspecified cp Followup: cp - With: Khalif Harris MD - When: 2 - 3 days - Reason: Recheck today's complaints Discharge Instructions: - Discharge Summary Sheet cp - Food Choices to Help Relieve Diarrhea, Adult cp - Diarrhea, Adult cp - Colitis cp Forms: - Medication Reconciliation Form cp - Thank You Letter cp - Antibiotic Education cp - Prescription Opioid Use cp Prescriptions: - Zofran 4 mg Oral Tablet - take 1 tablet by ORAL route every 12 hours As needed; 20 tablet; Refills: 0, cp Product Selection Permitted - Cipro 500 mg Oral Tablet - take 1 tablet by ORAL route every 12 hours for 10 days; 20 tablet; Refills: 0, cp Product Selection Permitted - Metronidazole 500 mg Oral Tablet - take 1 tablet by ORAL route every 8 hours; 30 tablet; Refills: 0, Product cp Selection Permitted - dicyclomine 20 mg Oral Tablet - take 1 tablet by ORAL route 4 times per day; 30 tablet; Refills: 0, Product cp Selection Permitted Signatures: Dispatcher [employer] EDMS Luis Morales MD MD kdr Page, Corey, PA PA cp Michael Rai RN RN jb4 Miladis Rico RN RN aa9 Stefan Dhaliwal RN RN jj7 Ryan Graves RN as6 Corrections: (The following items were deleted from the chart) 11/05 23:08 23:05 PSHx: None; aa9 aa9 11/06 01:08 01:08 Normal except: GFR 78. cp cp
[2021-11-06] MEDS ORDERED: metroNIDAZOLE 500 MG TABLET ONE (01:34)
[2021-11-06] MEDS ORDERED: CIPROFLOXACIN HCL 500 MG TAB ONE (01:34)
[2021-11-06 01:43] LABS: Urine Blood Negative (Negative); Urine Glucose Negative (Negative); Urine Protein Negative (Negative)
[2021-11-06 02:01] LABS: Urine RBC <5 /HPF (None Seen)
[2021-11-06 04:36] VITALS: TEMP 98.9; O2SAT 100
[2021-11-06 04:39] VITALS: BP 103/66
--- NOTE | 2021-11-06 16:02 | RAD REPORT ---
EXAM DESCRIPTION: CT - Abdomen Pelvis W Contrast - 11/06/2021 6:47 am CLINICAL HISTORY: The patient is 31 years old and is Female; RLQ abdominal pain TECHNIQUE: Axial computed tomography images of the abdomen and pelvis with intravenous contrast. S agittal and coronal reformatted images were created and reviewed. This CT exam was performed using one or more of the following dose reduction techniques: automated exposure control, adjustment of t he mA and/or kV according to patient size, and/or use of iterative reconstruction technique. DLP: 244 mGy*cm COMPARISON: None. FINDINGS: LUNG BASES: Partially seen pleural-based 3 mm nodules in the right middle lobe. Lung bases are clear. HEART: Visualized heart is normal. ABDOMEN: LIVER: Unremarkable. No mass. GALLBLADDER AND BILE DUCTS: Contracted gallbladder. No calcified stones. No ductal dilation. PANCREAS: Unremarkable. No mass. No ductal dilation. SPLEEN: Unremarkable. No splenomegaly. ADRENALS: Unremarkable. No mass. KIDNEYS AND URETERS: Unremarkable. No solid mass. No hydronephrosis. STOMACH AND BOWEL: Circumferential wall thickening of the cecum and ascending colon within mucosal enhancement. Pericolonic stranding. No obstruction. PELVIS: APPENDIX: No findings to suggest acute appendicitis. BLADDER: Unremarkable. No mass. REPRODUCTIVE: Unremarkable as visualized. ABDOMEN and PELVIS: INTRAPERITONEAL SPACE: Unremarkable. No free air. No significant fluid collection. BONES/JOINTS: No acute fracture. No dislocation. SOFT TISSUES: Unremarkable. VASCULATURE: Unremarkable. No abdominal aortic aneurysm. LYMPH NODES: Unremarkable. No enlarged lymph nodes. IMPRESSION: 1. Circumferential wall thickening of the cecum and ascending colon within mucosal enh ancement. Pericolonic stranding. Findings concerning for infectious or inflammatory colitis. Typhli tis could have similar imaging characteristics. 2. Partially seen pleural-based 3 mm nodules in the right middle lobe. No follow-up recommended. Electronically signed by: Clarence Harvey DO 11/06/2021 1:06 AM CDT Due to temporary technical issues with the PACS/Fluency reporting system, reports are being signed by the in house radiologists without review as a courtesy to insure prompt reporting. The interpreting radiologist is fully responsible for the content of the report.
== END 2021-11-06 02:07 | disposition home or self-care (01) ==
LOC: ER 22:49
DX: A09 Infectious gastroenteritis and colitis, unspecified (principal); E11.9 Type 2 diabetes mellitus without complications; F41.9 Anxiety disorder, unspecified; Z88.5 Allergy status to narcotic agent; Z91.018 Allergy to other foods; Z20.822 Contact with and (suspected) exposure to COVID-19
CPT/HCPCS: 85025; 36415; 81025; 82565; 83690; 80053; 87804 ×2; 74177; U0003; Q9967; 81003; 81015; 96360; 96361; 99284